=== PATIENT | female | born 1965 | race Caucasian/White ===

== ENCOUNTER 2019-10-17 01:27 | Outpatient (CLI) | payer OTHER, SELFPAY ==
[2019-10-17 13:42] LABS: Abs Immature Grans 0.01 k/cumm (0.0-0.09); Absolute Basophil Count 0.02 k/cumm (0.0-0.2); Absolute Eosinophil Count 0.13 k/cumm (0.0-0.7); Absolute Lymphocyte Count 1.55 k/cumm (1.2-3.4); Absolute Monocyte Count 0.54 k/cumm (0.11-0.7); Basophils % 0.3; Eosinophils % 1.9; HCT 42.5 % (36.0-46.0); HGB 14.3 g/dL (12.0-15.5); Immature Grans % 0.1 %; Mean Corp. HGB Concentration 33.6 g/dL (32.0-36.0); Mean Corpuscular Hemoglobin 30.2 pg (27.0-33.0); Mean Corpuscular Volume 89.7 fL (80-95); Mean Platelet Volume 10.2 fL (8.0-11.0); Neutrophils % 66.7; Platelet Count 307 x1000/uL (130-400); RBC 4.74 m/cumm (4.00-5.20); RBC Distribution Width 13.5 % (11.7-14.6); White Blood Cell Count 6.75 k/cumm (4.4-10.8)
[2019-10-17 13:57] LABS: Hemoglobin A1C 5.4 % (3.8-5.6)
[2019-10-17 14:17] LABS: Calculated LDL 133 mg/dL (<100); Cholesterol 215 mg/dL (<200); HDL Cholesterol 59 mg/dL (40-60); TSH 0.61 uIU/mL (0.36-3.74); Triglyceride 118 mg/dL (<150)
[2019-10-17 14:36] LABS: FREE T4 0.77 ng/dL (0.76-1.46)
[2019-10-17 21:21] LABS: T3,Free 2.8 pg/mL (2.8-5.3)
[2019-10-19 11:59] LABS: Lyme Ab w Rflx to Lyme Confirm Negative (Negative)
== END 2019-10-17 01:47 ==
PROVIDERS: PCP Nurse Practitioner; Visit Provider Naturopath
DX: I10 Essential (primary) hypertension (principal); K59.00 Constipation, unspecified; R06.00 Dyspnea, unspecified; R53.83 Other fatigue; F41.9 Anxiety disorder, unspecified; L50.1 Idiopathic urticaria; E07.9 Disorder of thyroid, unspecified; D50.9 Iron deficiency anemia, unspecified; Z13.220 Encounter for screening for lipoid disorders; Z13.1 Encounter for screening for diabetes mellitus
CPT/HCPCS: 36415; 80061; 86619; 83036; 84439; 84443; 84481; 85025; 86618

== ENCOUNTER 2020-03-06 15:27 | Outpatient (CLI) | payer OTHER, SELFPAY ==
--- NOTE | 2020-03-06 13:43 | DI.RAD_ITS ---
EXAM: XR HIP RT COMPLETE AP PELVIS CLINICAL HISTORY: Right hip pain. TECHNIQUE: 2D digital imaging was performed. COMPARISON: No exams were available for comparison FINDINGS: BONES: No acute fracture is present. No bony destructive lesion is seen. JOINTS: No dislocation present. SOFT TISSUE: Normal. IMPRESSION: Unremarkable radiographs of the right hip. Unremarkable radiographs of the pelvis. DATA REPOSITORY: RADIATION DOSE DELIVERED:
== END 2020-03-06 15:47 ==
PROVIDERS: PCP Nurse Practitioner; Referring Provider Nurse Practitioner; Visit Provider Student in an Organized Health Care Education/Training Program
DX: M25.551 Pain in right hip (principal)
CPT/HCPCS: 73502

== ENCOUNTER 2020-08-06 15:47 | Outpatient (REF) | payer OTHER, SELFPAY ==
--- NOTE | 2020-08-06 14:40 | PAPFT_PTH ---
PATIENT: Lidia Johnson LOC: [facility] U#:[id number] AGE/SX: 55/F ROOM: RE08/06/[address]: Yeimy Sheth NP : 1965 BED: DIS: 08/06/2020 SPEC #: [id number] RECD: 08/07/20 13:10 STATUS: DERREK RETesfaye #: [id number] BARBIE: 08/06/20 14:[address]: Yeimy Sheth NP DEPT: [facility] Cytology RECD BY: Vickie Casillas ENTERED: 08/07/20 13:10 SP TYPE: PAPFT OTHR DR: Aimee Wiseman Tissues: 1 - CX/ENDOCX FOR PAP SMEARS Procedures: PAP THIN PREP/[facility] Screening HPV DNA PROBE Comments: [id number]
== END 2020-08-06 15:48 | disposition home or self-care (01) ==
LOC: LBN 15:47
PROVIDERS: PCP Nurse Practitioner; Visit Provider Nurse Practitioner Women's Health
DX: Z12.4 Encounter for screening for malignant neoplasm of cervix (principal); Z11.51 Encounter for screening for human papillomavirus (HPV)
CPT/HCPCS: 88142; 87624

== ENCOUNTER → 2023-09-29 01:58 | Outpatient (CLI) | payer OTHER, SELFPAY ==
--- NOTE | 2023-09-29 | DI.MAMMO_ITS ---
Exam(s) MAMMO SCREENING EXAM: MAMMO SCREENING CLINICAL HISTORY: SCREENING MAMMO FOR BREAST CANCER Z12.31. TECHNIQUE: Bilateral full field digital CC and MLO mammographic images were obtained with 3D tomosyn thesis and utilizing computer aided detection (CAD). COMPARISON: . This is a baseline mammogram on this 58-year-old patient FINDINGS: There are nospiculated masses nor malignant appearing microcalcification groups. There is no significant architectural distortion nor skin thickening-retraction. IMPRESSION: No radiographic evidence of malignancy. BI-RADS Category 1 - Negative Breast Density - Category B - Scattered areas of fibroglandular density Breast density Category C or D implies that the patient has dense breast tissue. Dense breast tissue can make it harder to find cancer on a mammogram. Dense breast tissue is also associated with an incr eased risk of breast cancer. This information about the result of the mammogram report was provided to the patient to raise their awareness. Use this report when you speak with the patient about their risks for breast cancer, which includes their family history. At that time, you may recommend additional screening tests (Ultrasoun d or MRI) as these tests may add significant information. A negative radiographic report should not delay biopsy if a dominant or clinically suspicious mass is present. Up to ten percent of cancers are not identified on mammography. A negative report may reinforce clinical impression. Adenosis and dense breasts may obscure an underlying neoplasm. False positive reports average 6 to 10%. Patient will receive a letter notifying them of these results.
== END ==
PROVIDERS: PCP Nurse Practitioner; Visit Provider Naturopath
DX: Z12.31 Encounter for screening mammogram for malignant neoplasm of breast (principal)
CPT/HCPCS: 77063; 77067

== ENCOUNTER 2024-10-03 12:25 | Outpatient (REF) | payer OTHER, SELFPAY ==
--- NOTE | 2024-10-03 11:45 | PAPFT_PTH ---
PATIENT: Lidia Johnson LOC: [facility] U#:[id number] AGE/SX: 59/F ROOM: RE10/03/[address]: Lisa Jean Baptiste MD : 1965 BED: DIS: 10/03/2024 SPEC #: [id number] RECD: 10/03/24 13:18 STATUS: DERREK REQ #: [id number] BARBIE: 10/03/24 11:[address]: Lisa Jean Baptiste DEPT: [facility] Cytology RECD BY: Vickie Casillas ENTERED: 10/03/24 13:18 SP TYPE: PAPFT OTHR DR: Aimee Wiseman Tissues: 1 - CX/ENDOCX FOR PAP SMEARS Procedures: PAP THIN PREP/[facility] Screening HPV DNA PROBE Comments: [id number] (HPV 16 & 18/45)
== END 2024-10-03 12:26 | disposition home or self-care (01) ==
LOC: LBN 12:25
PROVIDERS: PCP Nurse Practitioner; Visit Provider Obstetrics & Gynecology
DX: Z12.4 Encounter for screening for malignant neoplasm of cervix (principal)
CPT/HCPCS: 88142; 87624